=== PATIENT | female | born 1985 | race American Indian/Alaskan Native ===

== ENCOUNTER 2017-11-21 08:17 | Emergency (ER) | payer MEDICAID ==
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
[2017-11-21] MEDS ORDERED: MOTRIN PO ONE (10:34)
[2017-11-21 11:11] LABS: HCG Qualitative,Urine Negative (Negative)
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
[2017-11-21] MEDS ORDERED: MOTRIN ONE (13:01)
[2017-11-21 13:49] VITALS: BP 123/80
== END 2017-11-21 13:46 | disposition home or self-care (01) ==
LOC: ED 08:17
DX: M79.602 Pain in left arm (principal)
CPT/HCPCS: 81025; 99284

== ENCOUNTER 2019-02-14 14:17 | Emergency (ER) | payer MEDICAID ==
[2019-02-14 14:42] VITALS: BP 156/81
--- NOTE | 2019-02-14 14:45 | Emergency Department Report ---
ED Eye Problem HPI - General Chief complaint: Eye Problems Stated complaint: HEADACHE/THROAT/EYE PAIN Time Seen by Provider: 02/14/19 14:40 Source: patient Mode of arrival: Ambulatory Limitations: No Limitations - History of Present Illness Initial comments: pt is a 33 yo female who presents to the ED with left upper eyelid pain and erythema that began yesterday morning. states there is a lump to the left upper eyelid. she denies ever having before. no vision issues. has been using warm compresses. no pmhx. no allergies to meds. - Related Data Previous Rx's Medication Instructions Recorded Last Taken Type Ibuprofen [Motrin] 600 mg PO Q8H PRN #15 tablet 11/21/17 Unknown Rx traMADol [Ultram] 50 mg PO Q6HR PRN #12 tablet 11/21/17 Unknown Rx Erythromycin [Erythromycin Ophth 0.5 inch OP QID 7 Days #1 tube 02/14/19 Unknown Rx Oint] Allergies Allergy/AdvReac Type Severity Reaction Status Date / Time No Known Allergies Allergy Unverified 11/21/17 08:34 ED Review of Systems ROS: Stated complaint: HEADACHE/THROAT/EYE PAIN Other details as noted in HPI Comment: All other systems reviewed and negative ED Past Medical Hx - Past Medical History Previous Medical History?: No - Surgical History Past Surgical History?: Yes Additional Surgical History: x 4 - Social History Smoking Status: Never Smoker Substance Use Type: None - Medications Home Medications: Home Medications Medication Instructions Recorded Confirmed Last Taken Type Ibuprofen [Motrin] 600 mg PO Q8H PRN #15 tablet 11/21/17 Unknown Rx traMADol [Ultram] 50 mg PO Q6HR PRN #12 tablet 11/21/17 Unknown Rx Erythromycin [Erythromycin Ophth 0.5 inch OP QID 7 Days #1 tube 02/14/19 Unknown Rx Oint] ED Physical Exam - General Limitations: No Limitations General appearance: alert, in no apparent distress - Head Head exam: Present: atraumatic, normocephalic - Eye Eye exam: Present: PERRL, EOMI, other (edema and erythema present to the left upper eyelid) - ENT ENT exam: Present: normal orophraynx, mucous membranes moist - Neurological Exam Neurological exam: Present: alert, oriented X3 - Psychiatric Psychiatric exam: Present: normal affect, normal mood - Skin Skin exam: Present: warm, dry, intact ED Course Vital Signs 02/14/19 14:39 Temperature 98.1 F Pulse Rate 92 H Respiratory 18 Rate Blood Pressure 156/81 O2 Sat by Pulse 100 Oximetry ED Medical Decision Making - Medical Decision Making pt is a 33 yo female who presents to the ED with left upper eyelid pain and erythema that began yesterday morning. states there is a lump to the left upper eyelid. she denies ever having before. no vision issues. has been using warm compresses. no pmhx. no allergies to meds. examination consistent with internal hordeolum. pt given prescription for erythromycin ointment. advised to please use medication as prescribed. continue to use warm compresses. wash your hands often. follow up with a primary care doctor in the next 2-3 days. return to the emergency room for any new or worsening symptoms. - Differential Diagnosis hordeolum, chalazion, conjunctivitis, corneal abrasion, allergies Critical care attestation.: If time is entered above; I have spent that time in minutes in the direct care of this critically ill patient, excluding procedure time. ED Disposition Clinical Impression: Hordeolum Qualifiers: Hordeolum type: internum Laterality: left Eyelid: upper Qualified Code(s): H00.024 - Hordeolum internum left upper eyelid Disposition: - TO HOME OR SELFCARE Is pt being admited?: No Does the pt Need Aspirin: No Condition: Stable Instructions: Kathryn (ED) Additional Instructions: please use medication as prescribed. continue to use warm compresses. wash your hands often. follow up with a primary care doctor in the next 2-3 days. return to the emergency room for any new or worsening symptoms. Prescriptions: Erythromycin [Erythromycin Ophth Oint] 0.5 inch OP QID 7 Days #1 tube Referrals: ISRAEL PAYTON MD [Primary Care Provider] - 2-3 Days Forms: Work/School Release Form(ED) Time of Disposition: 14:50 Print Language: PUERTO RICAN
== END 2019-02-14 14:58 | disposition home or self-care (01) ==
LOC: ED 14:17
DX: H00.024 Hordeolum internum left upper eyelid (principal)
CPT/HCPCS: 99281